=== PATIENT | female | born 1945 | race Caucasian/White ===

== ENCOUNTER 2023-04-27 10:05 | Emergency (ER) | payer MEDICARE, SELFPAY ==
[2023-04-27] VITALS (7 sets, daily range): BP systolic 110–140; BP diastolic 51–79; PULSE 62–72; RESP 14–18; TEMP 35.7; O2SAT 94–99; BMI 40.4
--- NOTE | 2023-04-27 10:52 | ED_ITS ---
HPI - Extremity Injury (Lower) General Time Seen by Provider: 10:52 Date Seen: 04/27/23 Chief Complaint: Extremity Pain/Injury, Lower Stated Complaint: fall Time Seen by Provider: 04/27/23 10:52 Source: patient, EMS and RN notes reviewed Mode of arrival: EMS Limitations: altered mental status History of Present Illness HPI Narrative: Patient is a resident of [facility] and had a witnessed fall. She was on the toilet, attempting to transfer from the toilet to her wheelchair. She states she uses a transfer device, staff was attempting to help her and she just slipped down. After that she was complaining of right ankle pain. She has a history of a significant ankle fracture, states they had talked about amputation but did end up doing surgery. She feels she just felt a little weak, lost her balance. She denies hitting her head, no neck or back pain, no difficulty breathing, no chest pain, no palpitations. She does not feel like she has been ill, does not feel that there was any medical underlying reason for the fall today. She is only hurting in the ankle, does feel pain up into the knee area as well. Does not feel any pelvic or hip pain. This happened just prior to arrival. MD complaint: knee injury, ankle injury and fall Related Data Home Medications Medication Instructions Recorded Confirmed acetaminophen 325 mg tablet PO 04/27/23 amlodipine 10 mg tablet 10 mg PO DAILY 04/27/23 04/27/23 bupropion HCl 100 mg tablet,12 hr 100 mg PO BID 04/27/23 04/27/23 sustained-release citalopram 20 mg tablet 20 mg PO DAILY 04/27/23 04/27/23 clopidogrel 75 mg tablet 75 mg PO DAILY 04/27/23 04/27/23 divalproex 500 mg tablet,delayed 500 mg PO BID 04/27/23 04/27/23 release hydrochlorothiazide 25 mg tablet 25 mg PO DAILY 04/27/23 04/27/23 losartan 50 mg tablet 75 mg PO DAILY 04/27/23 04/27/23 metoprolol succinate 100 mg 100 mg PO DAILY 04/27/23 04/27/23 tablet,extended release 24 hr nystatin 100,000 unit/gram topical 1 applic topical BID-TID 04/27/23 04/27/23 powder pramipexole 0.125 mg tablet 0.125 mg PO QPM 04/27/23 04/27/23 rosuvastatin 20 mg tablet 20 mg PO QPM 04/27/23 04/27/23 tolterodine 2 mg tablet 2 mg PO DAILY 04/27/23 04/27/23 Previous Rx's Medication Instructions Recorded cephalexin 500 mg tablet 500 mg PO BID #10 tabs 04/27/23 Allergies Allergy/AdvReac Type Severity Reaction Status Date / Time codeine Allergy Unknown Verified 04/27/23 10:18 Review of Systems Status of ROS: Reports: 6 or more systems reviewed and unremarkable except as noted in History and below Exam Const: Vital Signs, click to edit/add: Vital Signs - 24 hr 04/27/23 10:12 Temperature 96.3 F L Pulse Rate [Pulse Oximeter] 62 Respiratory Rate 18 Blood Pressure [Le ft Upper Arm] 129/66 Pulse Oximetry 95 Oxygen Delivery Me thod Room Air Documenting provider has reviewed patient's vital signs: yes Common normals: no apparent distress, average body habitus, oriented x3, no limitations, healthy appearing, alert and well nourished General appearance: cooperative, comfortable, well kempt and well developed HENMT: Common normals: normocephalic, head/scalp atraumatic, hearing grossly normal bilaterally and external nose normal Head and scalp: normocephalic and atraumatic Face and sinus: normal facial exam Nose: external nose normal Eye: Common normals: PERRL, EOMs intact bilaterally, conjunctivae normal and no scleral icterus Conjunctiva: conjunctiva(e) normal Pupil: PERRL Neck & C-Spine: Common normals: full ROM (No midline tenderness, no paraspinous tenderness), no lymphadenopathy, supple, no JVD and thyroid normal Thyroid: thyroid normal Resp: Common normals: normal respiratory effort, no retractions, no use of accessory muscles and clear to auscultation bilaterally Effort & inspection: able to speak in complete sentences Auscultation: clear to auscultation bilaterally Cardio: Common normals: no JVD, regular rate, regular rhythm, S1 normal heart sound, S2 normal heart sound, no gallops, no clicks and no murmurs Rate: regular rate Rhythm: regular rhythm Heart sounds: S1 normal and S2 normal GI: Common normals: Normal to inspection, nondistended, normoactive bowel sounds present, soft to palpation, non-tender and no hepatosplenomegaly Palpation: soft and no hepatosplenomegaly Extremity: Other: Has very thickened chronically edematous lower extremities without any significant skin changes. Has normal light touch sensation about her toes and feet. She has significant old well-healed scarring overlying the right lower leg. Foot and extremity are slightly rotated out. She has no pain on palpation of the pelvis or the right hip area palpating down the femur she is nontender. She does states she has some pain about the right knee when I palpate over the proximal tibial area. I do not note any joint effusion around this knee. She does complain of some pain when I palpate in the tibia and fibula area down the leg towards the ankle. She has thickened skin around the ankle but do not appreciate any acute effusion that I can feel. Complains of pain when I palpate over the ankle in general. Neuro: Common normals: oriented x3 Sensorium/orientation: alert Psych: Appearance: well kempt Course Course Hospital Course: Will obtain images of her right knee, tib-fib and ankle to rule out fracture. Patient is appropriate when talking to me, do feel that she is not giving me any symptomatology of underlying metabolic or infectious etiology. Reevaluation(s) Time of Reevaluation #1: 12:15 Reevaluation #1: Nursing staff noted patient had quite odorous urine. Will attempt to get a urinalysis on her. Time of Reevaluation #2: 14:54 Reevaluation #2: Reviewed with patient that her urine definitely looks infected with UTI. Her cell counts/basic metabolic panel are stable, no acute concerns at this time. We will give her an oral dose of Keflex 500 mg here. She is stating that she has a right restless leg baseline, takes Tylenol at her residence and would like some now. I have ordered 1000 mg oral Tylenol. Have reviewed with her that there is no fracture of the imaging in this extremity. Vital Signs Vital signs: Initial Vital Signs Temperature 96.3 F L 04/27/23 10:12 Temperature Source Temporal Artery Scan 04/27/23 10:12 Pulse Rate 62 04/27/23 10:12 Respiratory Rate 18 04/27/23 10:12 Blood Pressure 129/66 04/27/23 10:12 Blood Pressure Mean 87 04/27/23 10:12 Blood Pressure Position Supine 04/27/23 10:12 Pulse Oximetry 95 04/27/23 10:12 Oxygen Delivery Method Room Air 04/27/23 10:12 Vital Signs Temperature 96.3 F L 04/27/23 10:12 Pulse Rate 62 04/27/23 10:12 Respiratory Rate 18 04/27/23 10:12 Blood Pressure 129/66 04/27/23 10:12 Pulse Oximetry 95 04/27/23 10:12 Oxygen Delivery Method Room Air 04/27/23 10:12 Temperature 96.3 F L 04/27/23 10:12 Pulse Rate 62 04/27/23 10:12 Respiratory Rate 18 04/27/23 10:12 Blood Pressure 129/66 04/27/23 10:12 Pulse Oximetry 95 04/27/23 10:12 Oxygen Delivery Method Room Air 04/27/23 10:12 MDM - Extremity Injury (Lower) Differential Diagnosis Differential diagnosis: Likely ankle sprain and strain, acute internal derangement of knee and ankle fracture Lab Data Attestation: I reviewed the patient's lab results. Labs: Lab Results 04/27/23 04/27/23 Range/Units 13:23 13:44 WBC 6.84 (4.50-11.00) K/uL RBC 3.89 L (4.00-5.20) m/uL Hgb 12.1 (12.0-16.0) gm/dL Hct 38.3 (33.0-51.0) % MCV 99 (80-100) fL MCH 31 (26-34) pg MCHC 32 (32-36) gm/dL RDW Coeff of Nayeli 12.2 (11.5-15.5) % Plt Count 219 (140-440) K/uL Neut % (Auto) 56.5 (42.0-72.0) % Lymph % (Auto) 33.3 (20-44) % Creek % (Auto) 7.7 (0.0-11.0) % Eos % (Auto) 2.3 (0.0-7.0) % Baso % (Auto) 0.1 (0.0-3.0) % Neut # (Auto) 3.85 (1.7-7.0) K/uL Lymph # (Auto) 2.28 (0.90-2.90) K/uL Creek # (Auto) 0.50 (0.00-0.90) K/UL Eos # (Auto) 0.16 (0.00-0.50) K/uL Baso # (Auto) 0.01 (0.00-0.30) K/uL Abs Immat Gran (auto) 0.01 (0.00-0.30) K/uL Imm/Tot Granulo (auto) 0.1 % Sodium 138 (135-149) mmol/L Potassium 4.7 (3.6-5.1) mmol/L Chloride 101 (96-114) mmol/L Carbon Dioxide 27 (20-32) mmol/L BUN 45 H (7-30) mg/dL Creatinine 1.4 (0.5-1.5) mg/dL Estimated Creat Clear 32.00 Estimated GFR 39 ml/min Glucose 118 H (60-115) mg/dL Calcium 9.6 (8.4-10.6) mg/dL Urine Color Yellow (Yellow) Urine Appearance Slightly Cloudy A (Clear) Urine pH 7.5 (5.0-8.5) Ur Specific [place] 1.015 (1.000-1.030) Urine Protein Negative (Negative) Urine Glucose (UA) Negative (Negative) Urine Ketones Negative (Negative) Urine Blood 1+ A (Negative) Urine Nitrite Positive A (Negative) Urine Bilirubin Negative (Negative) Urine Urobilinogen 0.2 (0.2-1.0) Ur Leukocyte Esterase 1+ A (Negative) Urine RBC 0-2 (0-2) Urine WBC 5-10 A (0-5) Ur Squamous Epith Cells Few (None-Few) Urine Bacteria Many A (None) Imaging Data XR right knee: Attestation: I have reviewed the pertinent imaging results. My impression: No acute fracture noted on my preliminary review. Radiologist's impression: Patient: MANUEL VIDAL Facility:?[facility] Patient ID:?[id number] Site Patient ID:?[id number]. Site :?1945 Study:?XRay Knee Right 2V-04/27/2023 11:37:22 AM Ordering Physician:Michael Knapp Final Report: INDICATION: Fall pain TECHNIQUE: Two views right knee FINDINGS: Postsurgical changes of the tibia partially seen old proximal right fibular fracture. Advanced osteoarthritis. Vascular calcifications. No acute fractures seen. No effusions. Dictated by Angelica James MD @ 04/27/2023 12:13:56 PM (Electronic Signature) XR right ankle: Attestation: I have reviewed the pertinent imaging results. My impression: Extensive hardware about the ankle but no acute fracture seen on my preliminary review. Radiologist's impression: Patient: MANUEL VIDAL Facility:?[facility] Patient ID:?[id number] Site Patient ID:?[id number]. Site :?1945 Study:?XRay Extremity Right ANKLE 3V-04/27/2023 11:39:27 AM Ordering Physician:?Kylah Knapp Final Report: INDICATION: Fall TECHNIQUE: Views of the right ankle FINDINGS: Extensive postsurgical fixation of distal tibia and fibular fracture with plate and screw fixation. No acute fractures definitively seen. Calcaneal spur. Soft tissue swelling. Bones appear demineralized. Dictated by Angelica James MD @ 04/27/2023 12:16:34 PM (Electronic Signature) XR right tib fib: Attestation: I have reviewed the pertinent imaging results. My impression: Do not see any acute fracture, has old hardware. Radiologist's impression: Patient: MANUEL VIDAL Facility:?[facility] Patient ID:?[id number] Site Patient ID:?[id number]. Site :?1945 Study:?XRay Extremity Right TIB/FIB-04/27/2023 11:38:27 AM Ordering Physician:?Kylah Knapp Final Report: INDICATION: Fall pain TECHNIQUE: Views of the right tibia and fibula FINDINGS: Postsurgical changes the right tibia and distal fibula. Old proximal fibular fracture. Medial malleolar screw. Normal alignment. No acute fractures seen. Dictated by Angelica James MD @ 04/27/2023 12:15:07 PM (Electronic Signature) Critical Care Time Critical Care Time Critical Care Time: No Discharge Plan Discharge Clinical Impression: Acute ankle pain, Acute UTI, Fall Patient Disposition: Home, Self-Care Condition: Stable Instructions: Urinary Tract Infection in Women (ED), Fall Prevention for Older Adults (ED) Additional Instructions: Keflex given here prior to discharge. Continue with medicine as prescribed. Need to be re-evaluated if you have increased weakness, develops fevers, have vomiting or abdominal pain. Activity Level: Activity as Tolerated Prescriptions: New cephalexin 500 mg tablet 500 mg PO BID Qty: 10 0RF No Action losartan 50 mg tablet 75 mg PO DAILY acetaminophen 325 mg tablet PO metoprolol succinate 100 mg tablet extended release 24 hr 100 mg PO DAILY clopidogrel 75 mg tablet 75 mg PO DAILY divalproex 500 mg tablet,delayed release (DR/EC) 500 mg PO BID bupropion HCl 100 mg tablet sustained-release 12 hr 100 mg PO BID citalopram 20 mg tablet 20 mg PO DAILY tolterodine 2 mg tablet 2 mg PO DAILY amlodipine 10 mg tablet 10 mg PO DAILY pramipexole 0.125 mg tablet 0.125 mg PO QPM hydrochlorothiazide 25 mg tablet 25 mg PO DAILY nystatin 100,000 unit/gram powder 1 applic topical BID-TID rosuvastatin 20 mg tablet 20 mg PO QPM Follow Up/Referrals: Provider,Not a Local [Primary Care Provider] - Stand Alone Forms: [employer] Info Instructions
--- NOTE | 2023-04-27 10:56 | CRLHL7_ITS ---
For Patients: As a result of the Century Cures Act, medical imaging exams and procedure reports are released immediately into your electronic medical record. You may view this report before your referring provider. If you have questions, please contact your health care provider. INDICATION: Fall pain TECHNIQUE: Two views right knee FINDINGS: Postsurgical changes of the tibia partially seen old proximal right fibular fracture. Advanced osteoarthritis. Vascular calcifications. No acute fractures seen. No effusions. Dictated by Angelica James MD @ 04/27/2023 12:13:56 PM (Electronically Signed)
--- NOTE | 2023-04-27 10:56 | CRLHL7_ITS ---
For Patients: As a result of the Century Cures Act, medical imaging exams and procedure reports are released immediately into your electronic medical record. You may view this report before your referring provider. If you have questions, please contact your health care provider. INDICATION: Fall TECHNIQUE: Views of the right ankle FINDINGS: Extensive postsurgical fixation of distal tibia and fibular fracture with plate and screw fixation. No acute fractures definitively seen. Calcaneal spur. Soft tissue swelling. Bones appear demineralized. Dictated by Angelica James MD @ 04/27/2023 12:16:34 PM (Electronically Signed)
--- NOTE | 2023-04-27 11:15 | CRLHL7_ITS ---
For Patients: As a result of the Century Cures Act, medical imaging exams and procedure reports are released immediately into your electronic medical record. You may view this report before your referring provider. If you have questions, please contact your health care provider. INDICATION: Fall pain TECHNIQUE: Views of the right tibia and fibula FINDINGS: Postsurgical changes the right tibia and distal fibula. Old proximal fibular fracture. Medial malleolar screw. Normal alignment. No acute fractures seen. Dictated by Angelica James MD @ 04/27/2023 12:15:07 PM (Electronically Signed)
[2023-04-27 14:06] LABS: Basophils Absolute Auto 0.01 K/uL (0.00-0.30); Basophils Percent Auto 0.1 % (0.0-3.0); Eosinophils Absolute Auto 0.16 K/uL (0.00-0.50); Eosinophils Percent Auto 2.3 % (0.0-7.0); Hematocrit 38.3 % (33.0-51.0); Hemoglobin* 12.1 gm/dL (12.0-16.0); Immature Granulocytes Abs Auto 0.01 K/uL (0.00-0.30); Immature Granulocytes Pct Auto 0.1 %; Lymphocytes Absolute Auto 2.28 K/uL (0.90-2.90); Lymphocytes Percent Auto 33.3 % (20-44); Mean Corpuscular HGB Conc 32 gm/dL (32-36); Mean Corpuscular Hemoglobin 31 pg (26-34); Mean Corpuscular Volume 99 fL (80-100); Monocytes Percent Auto 7.7 % (0.0-11.0); Neutrophils Absolute Auto 3.85 K/uL (1.7-7.0); Neutrophils Percent Auto 56.5 % (42.0-72.0); Platelet Count* 219 K/uL (140-440); RDW Coefficient of Variation % 12.2 % (11.5-15.5); Red Blood Count 3.89 m/uL (4.00-5.20); White Blood Count* 6.84 K/uL (4.50-11.00)
[2023-04-27 14:18] LABS: Appearance Urine Slightly Cloudy (Clear); Bilirubin Urine Negative (Negative); Blood Urine 1+ (Negative); Color Urine Yellow (Yellow); Glucose Urine Negative (Negative); Ketones Urine Negative (Negative); Leukocyte Esterase Urine 1+ (Negative); Nitrite Urine Positive (Negative); Protein Urine Negative (Negative); Specific Gravity Urine 1.015 (1.000-1.030); Urobilinogen Urine 0.2 (0.2-1.0); pH Urine 7.5 (5.0-8.5)
[2023-04-27 14:26] LABS: RBC Urine 0-2 (0-2)
[2023-04-27 14:27] LABS: Bacteria Urine Many; Squamous Epithelial Cell Urine Few (None-Few)
[2023-04-27 14:33] LABS: Chloride* 101 mmol/L (96-114); Potassium* 4.7 mmol/L (3.6-5.1); Slide Review Reflex No; Sodium* 138 mmol/L (135-149)
[2023-04-27 14:36] LABS: Blood Urea Nitrogen* 45 mg/dL (7-30); Carbon Dioxide* 27 mmol/L (20-32); Creatinine* 1.4 mg/dL (0.5-1.5); Estimated Glomerular Filt Rate 39 ml/min
[2023-04-27 14:37] LABS: Calcium* 9.6 mg/dL (8.4-10.6); Glucose* 118 mg/dL (60-115)
[2023-04-27] MEDS: cephALEXin 500 MG CAPSULE PO (15:16)
[2023-04-27] MEDS: ACETAMINOPHEN 500 MG TABLET 1000 MG PO (15:17)
--- NOTE | 2023-04-27 15:24 | PC.NURSE ---
spoke with son Thanh who agrees to ambulance transfer back and updated on pt condition
== END 2023-04-27 15:51 | disposition home or self-care (01) ==
PROVIDERS: Emergency Provider Family Medicine
DX: M25.571 Pain in right ankle and joints of right foot (principal); N39.0 Urinary tract infection, site not specified; W18.11XA Fall from or off toilet without subsequent striking against object, initial encounter
CPT/HCPCS: 36415; 73560; 73590; 73610; 80048; 81001; 85025; 87086; 87186; 99284; 99285; A0425; A0428; A9270